=== PATIENT | female | born 1960 ===

== ENCOUNTER 2020-04-06 14:04 | Outpatient (CLI) | payer MEDICAID ==
--- NOTE | 2020-04-09 08:15 | Consultation ---
DATE OF CONSULTATION: 04/06/2020 GASTROENTEROLOGY CONSULTATION CONSULTING PHYSICIAN: Logan Hill MD REASON FOR REFERRAL: Chronic diarrhea for 6 months. PAST MEDICAL HISTORY: Menopause. PAST SURGICAL HISTORY: Breast augmentation, tonsillectomy, and bilateral knee surgery. MEDICATIONS: Prempro. FAMILY HISTORY: Father had bladder cancer and kidney cancer. SOCIAL HISTORY: The patient drinks wine, but denies any IV drug abuse or tobacco abuse. ALLERGIES: No known drug allergies. REVIEW OF SYSTEMS: Positive for chronic diarrhea for about 8 times a day. PHYSICAL EXAMINATION: VITAL SIGNS: Temperature 97.2. Weight is 157. Vital signs stable. HEENT: Normocephalic and atraumatic. Sclerae anicteric. NECK: Supple. No evidence of obvious lymphadenopathy. CARDIOVASCULAR: Regular rhythm. Plus S1, S2. LUNGS: Clear to auscultation bilaterally. ABDOMEN: Positive bowel sounds. Soft and nontender. No rebound. No guarding. No peritoneal sign. EXTREMITIES: No cyanosis. No clubbing. No edema. ASSESSMENT: This is a 59-year-old female with chronic diarrhea. PLAN: 1. Check thyroid panel to rule out hypothyroidism. 2. Check celiac panel to rule out gluten sensitivity. 3. The patient was advised to stay away from food with lactulose in it. 4. Plan colonoscopy for screening and also for evaluation of chronic anemia. Logan Hill M.D. DR: Felicity JOB#: [id number] CC:
== END 2020-04-06 16:04 | disposition home or self-care (01) ==
LOC: PAN 14:04
DX: R19.7 Diarrhea, unspecified (principal)
CPT/HCPCS: G0463